=== PATIENT | male | born 1990 | race Two or more races ===

== ENCOUNTER 2017-10-13 20:05 | Emergency (ER) | payer MEDICAID ==
[~2017-10-13] VITALS: Ht 185.4 cm; Wt 90.7 kg
[2017-10-13 21:15] LABS: Basophils # (auto) 0.1 uL; Basophils % (auto) 0.9 % (0.0-2.0); Eosinophils # (auto) 0.7 uL; Eosinophils % (auto) 7.5 % (0.0-7.0); Hematocrit 47.7 % (41.0-53.0); Hemoglobin 16.3 g/dL (13.5-17.5); Lymphocytes # (auto) 3.6 uL; Lymphocytes % (auto) 37.8 % (10.0-50.0); Mean Corpuscular Hgb Conc. 34.2 g/dL (32.0-36.0); Mean Corpuscular Volume 96.6 fL (80.0-100.0); Monocytes # (auto) 0.7 uL; Monocytes % (auto) 7.5 % (0.0-12.0); Neutrophils # (auto) 4.4 uL; Neutrophils % (auto) 46.3 % (37.0-80.0); Nucleated Red Blood Cells % 0.2 %; Platelet Count (auto) 325 10^3/uL (140-450); Red Blood Cells 4.93 10^6/uL (4.5-5.90); Red Cell Distribution Width 12.8 % (11.8-14.3); White Blood Cell 9.4 10^3/uL (4.4-10.8)
[2017-10-13 21:31] LABS: INR 0.96 (0.9-1.15); Partial Thromboplastin Time 26.4 sec (23.78-33.04); Prothrombin Time 10.3 sec (9.27-12.13)
[2017-10-13 21:37] LABS: Albumin 4.1 g/dL (3.4-5.0); BUN/Creatinine Ratio 16.8; Bilirubin, Total 0.5 mg/dL (0.2-1.0); Calcium 9.2 mg/dL (8.5-10.1); Potassium 4.3 mmol/L (3.5-5.1); Total Protein 7.8 g/dL (6.4-8.2)
[2017-10-13] MEDS ORDERED: HYDROcodone-ACET 7.5/325MG TAB PO ONE (22:45)
[2017-10-13 23:50] LABS: Urine Bacteria NONE SEEN /hpf (None Seen); Urine Blood Negative /uL (Negative); Urine Mucus FEW (None Seen); Urine WBC 1 /hpf (0 - 3)
[2017-10-14 00:06] LABS: Amphetamine Screen, Urine NEGATIVE (NEGATIVE); Barbiturate Scree,Urine NEGATIVE (NEGATIVE); Benzodiazephine Screen, Urine NEGATIVE (NEGATIVE); Cannabinoid Screen, Urine NEGATIVE (NEGATIVE); Cocaine Screen, Urine NEGATIVE (NEGATIVE); Opiate Scree,Urine NEGATIVE (NEGATIVE); Phencyclidine Screen, Urine NEGATIVE (NEGATIVE)
[2017-10-14 00:30] VITALS: BP 128/82
== END 2017-10-14 00:46 | disposition home or self-care (01) ==
LOC: ER 20:05
DX: I88.9 Nonspecific lymphadenitis, unspecified (principal); R42 Dizziness and giddiness
CPT/HCPCS: 36415; 74176; 80053; 80307; 81001; 82150; 83690; 85025; 85610; 85730

== ENCOUNTER 2019-02-14 20:37 | Emergency (ER) | payer MEDICAID ==
[~2019-02-14] VITALS: Ht 185.4 cm; Wt 95.3 kg
[2019-02-14] MEDS ORDERED: ONDANSETRON ODT 4 MG TAB PO ONE (21:15)
[2019-02-14] MEDS ORDERED: HYDROcodone-ACET 7.5/325MG TAB PO ONE (21:15)
[2019-02-14 22:05] LABS: Basophils # (auto) 0.1 uL; Basophils % (auto) 0.5 % (0.0-2.0); Eosinophils # (auto) 0.4 uL; Eosinophils % (auto) 2.4 % (0.0-7.0); Hematocrit 46.2 % (41.0-53.0); Hemoglobin 16.1 g/dL (13.5-17.5); Lymphocytes # (auto) 2.9 uL; Lymphocytes % (auto) 19.2 % (10.0-50.0); Mean Corpuscular Hemoglobin 32.9 pg (28.0-32.0); Mean Corpuscular Hgb Conc. 34.9 g/dL (32.0-36.0); Mean Corpuscular Volume 94.2 fL (80.0-100.0); Monocytes # (auto) 1.3 uL; Monocytes % (auto) 8.3 % (0.0-12.0); Neutrophils # (auto) 10.5 uL; Neutrophils % (auto) 69.6 % (37.0-80.0); Platelet Count (auto) 331 10^3/uL (140-450); Red Cell Distribution Width 13.2 % (11.8-14.3); White Blood Cell 15.1 10^3/uL (4.4-10.8)
[2019-02-14 22:16] LABS: Urine Bacteria NONE SEEN /hpf (None Seen); Urine Blood Negative /uL (Negative); Urine Mucus FEW (None Seen); Urine Specific Gravity 1.015 (1.001-1.035); Urine WBC 1 /hpf (0 - 3)
[2019-02-14 22:26] LABS: Albumin 3.9 g/dL (3.4-5.0); BUN/Creatinine Ratio 11.5; Calcium 8.5 mg/dL (8.5-10.1); Potassium 3.2 mmol/L (3.5-5.1)
[2019-02-14 22:29] LABS: Total Protein 7.6 g/dL (6.4-8.2)
[2019-02-14] MEDS ORDERED: LEVOFLOXACIN 250 MG TAB PO ONE (23:15)
[2019-02-14] MEDS ORDERED: metroNIDAZOLE 500 MG TAB PO ONE (23:15)
[2019-02-14 23:34] VITALS: BP 130/82
== END 2019-02-14 23:43 | disposition home or self-care (01) ==
LOC: ER 20:40
DX: K52.9 Noninfective gastroenteritis and colitis, unspecified (principal); F17.210 Nicotine dependence, cigarettes, uncomplicated; J45.909 Unspecified asthma, uncomplicated; Z87.442 Personal history of urinary calculi
CPT/HCPCS: 36415; 74176; 80053; 81001; 82150; 83690; 85025; 99284; Q0162

== ENCOUNTER 2024-09-24 13:29 | Emergency (ER) | payer MEDICAID ==
[~2024-09-24] VITALS: Ht 180.3 cm; Wt 86.2 kg
[2024-09-24 14:51] VITALS: BP 130/99; PULSE 103; RESP 20; TEMP 99.1; O2SAT 97
== END 2024-09-24 14:06 | disposition left against medical advice (07) ==
LOC: ER 13:29
DX: M79.641 Pain in right hand (principal); M25.561 Pain in right knee; R51.9 Headache, unspecified; Z53.21 Procedure and treatment not carried out due to patient leaving prior to being seen by health care provider; Y04.2XXA Assault by strike against or bumped into by another person, initial encounter; Y93.89 Activity, other specified; Y92.89 Other specified places as the place of occurrence of the external cause; Y99.8 Other external cause status